=== PATIENT | male | born 1995 | race Caucasian/White ===

== ENCOUNTER 2023-04-02 23:03 | Emergency (ER) | payer OTHER ==
[~2023-04-02] VITALS: Ht 180.3 cm; Wt 113.4 kg
[2023-04-02] MEDS ORDERED: EPINEPHRINE 1 MG/1 ML AMP SQ ONE (23:45)
[2023-04-02] MEDS ORDERED: FAMOTIDINE. 20 MG/2 ML VIAL IV ONE (23:45)
[2023-04-02] MEDS ORDERED: diphenhydrAMINE 50 MG/1 ML VIAL IV ONE (23:45)
[2023-04-02] MEDS ORDERED: methylPREDNISolone SOD SUCC 125 MG/2 ML VIAL IV ONE (23:45)
[2023-04-03 00:03] LABS: HEMATOCRIT 38.2 % (36.7-47.1); MEAN CORPUSCULAR HEMOGLOBIN 30.7 uug (23.8-33.4); MEAN CORPUSCULAR VOLUME 89.4 fL (73.0-96.2); PLATELET COUNT (AUTO) 223 K/uL (152-348)
[2023-04-03] MEDS ORDERED: EPINEPHRINE 1 MG/1 ML AMP ONE (00:04)
[2023-04-03] MEDS ORDERED: methylPREDNISolone SOD SUCC 125 MG/2 ML VIAL ONE (00:04)
[2023-04-03] MEDS ORDERED: diphenhydrAMINE 50 MG/1 ML VIAL ONE (00:04)
[2023-04-03] MEDS ORDERED: FAMOTIDINE. 20 MG/2 ML VIAL IV ONE (00:05)
[2023-04-03] MEDS ORDERED: KETOROLAC TROMETHAMINE 15 MG INJ IVP ONE (00:15)
[2023-04-03] MEDS ORDERED: levETIRAcetam 250 MG TABLET PO ONE (00:15)
[2023-04-03 00:17] LABS: CARBON DIOXIDE 27 mmol/L (21-32); CHLORIDE 104 mmol/L (98-107); CREATININE 0.9 mg/dL (0.6-1.3); UREA NITROGEN, BLOOD 13 mg/dL (7-18)
[2023-04-03 00:25] LABS: ALANINE AMINOTRANSFERASE 29 U/L (16-63); ALKALINE PHOSPHATASE 64 U/L (50-136); ASPARTATE AMINOTRANSFERASE 12 U/L (15-37); BILIRUBIN,DIRECT 0.1 mg/dL (0.0-0.2); BILIRUBIN,TOTAL 0.2 mg/dL (0.2-1.0); TOTAL PROTEIN, SERUM 6.4 g/dL (6.4-8.2)
[2023-04-03] MEDS ORDERED: levETIRAcetam 250 MG TABLET ONE (00:42)
[2023-04-03] MEDS ORDERED: KETOROLAC TROMETHAMINE 15 MG INJ ONE (00:42)
[2023-04-03] MEDS ORDERED: HYDROMORPHONE 1 MG/1 ML DISP.SYRIN IV ONE (00:45)
[2023-04-03] MEDS ORDERED: HYDROMORPHONE 1 MG/1 ML DISP.SYRIN ONE (00:46)
[2023-04-03] MEDS ORDERED: LAMOTRIGINE 100 MG TABLET PO SCH (01:00)
[2023-04-03] MEDS ORDERED: CYCLOBENZAPRINE HCL 10 MG TABLET PO ONE (01:00)
[2023-04-03] MEDS ORDERED: CYCLOBENZAPRINE HCL 10 MG TABLET ONE (01:04)
--- NOTE | 2023-04-03 01:07 | NUR ---
Patient is resting in bed comfortably. Rise and fall of chest noted, responds to name.
[2023-04-03 02:27] VITALS: BP 117/69; TEMP 97.6; O2SAT 98
[2023-04-03] MEDS ORDERED: EPIN0.3P3 IM (03:14)
== END 2023-04-03 02:00 | disposition home or self-care (01) ==
LOC: ER 23:05
DX: T78.09XA Anaphylactic reaction due to other food products, initial encounter (principal); T78.40XA Allergy, unspecified, initial encounter; R07.89 Other chest pain; Y92.89 Other specified places as the place of occurrence of the external cause
CPT/HCPCS: 99291; 71045; 80076; 80048; 85025; 84484; 36415; 93005; 96374; 96375; 96372; J1200; J0171; J3490; J1885; J2930; J1170; A4663